=== PATIENT | female | born 2000 | race Caucasian/White ===

== ENCOUNTER 2021-05-30 14:45 | Inpatient (IN) ==
[2021-05-29] MEDS: Betamethasone Acet/SodPhos 30 MG/5 ML VIAL IM SCH (22:17)
[2021-05-29] MEDS: NIFEdipine Immed Rel 10 MG CAPSULE PO SCH (22:18)
[2021-05-29 22:22] LABS: Basophils % 0.3 %; Eosinophils % 0.3 %; Hematocrit 34.1 % (35.3-44.9); Hemoglobin 10.6 g/dL (11.5-15.4); Immature Granulocytes % 0.6 % (0-4); Lymphocytes # 2.3 K/mcL (0.6-4.6); Lymphocytes % 19.6 %; Mean Corpuscular HGB Conc 31.1 g/dL (31.6-35.5); Mean Corpuscular Hemoglobin 22.6 pg (28.0-33.3); Mean Corpuscular Volume 72.9 fL (83.0-100.0); Mean Platelet Volume 9.5 fL (9.4-12.4); Monocytes # 0.5 K/mcL (0.0-1.3); Monocytes % 4.4 %; Neutrophils # 8.6 K/mcL (1.6-8.9); Platelet Count 285 K/mcL (140-400); Red Blood Count 4.68 M/mcL (3.82-4.97); Red Cell Distribution Width 16.3 % (11.5-14.5); Segmented Neutrophils % 74.8 %; White Blood Count 11.5 K/mcL (4.3-11.1)
[2021-05-29 22:27] LABS: Creatinine,Urine 78 mg/dL; Protein/Creatinine Ratio,Urine 0.31 mg/mg (0.00-0.20)
[2021-05-29 22:32] LABS: Amphetamine Screen,Urine Negative ng/mL (Cutoff=1000); Barbiturate Screen,Urine Negative ng/mL (Cutoff=200); Benzodiazepines Screen,Urine Negative ng/mL (Cutoff=200); Cannabinoid Screen,Urine Positive ng/mL (Cutoff = 50); Cocaine Screen,Urine Negative ng/mL (Cutoff= 300); Opiate Screen,Urine Negative ng/mL (Cutoff=300); Phencyclidine Screen,Urine Negative ng/mL (Cutoff=25)
[2021-05-29 22:37] LABS: Alanine Aminotransferase 46 Units/L (7-52); Aspartate Amino Transferase 33 Units/L (13-39); BUN/Creatinine Ratio 8 (6-26); Blood Urea Nitrogen 4 mg/dL (6-20); Lactate Dehydrogenase 113 Units/L (140-271); Uric Acid 5.5 mg/dL (2.3-7.6); eGFR For African Americans > 60 (> 60); eGFR For Non-African Americans > 60 (> 60)
[2021-05-29 23:04] LABS: Varicella Zoster IgG Antibody Negative
[2021-05-29 23:05] LABS: Rubella IgG Antibody POSITIVE (POSITIVE)
[2021-05-29 23:55] LABS: Hepatitis B Surface Antigen Nonreactive (Nonreactive)
[2021-05-30 00:23] LABS: HIV-1&2 Antibody & p24 Ag Nonreactive (Nonreactive)
[2021-05-30] MEDS: Ringers Solution, Lactated 1,000 ML IVC SCH (02:58)
[2021-05-30] MEDS: NIFEdipine Immed Rel 10 MG CAPSULE PO SCH ×2 (12:26→18:28)
[2021-05-30] MEDS: Magnesium Sulf 20 gm/SW 500mL 20 GM/500 ML IV.SOLN IVC SCH ×2 (12:59→22:50)
[~2021-05-30 14:45] MED LIST: *HR* FentaNYL (PF) 100 MCG/2 ML VIAL EP ONE; Calcium Gluconate 1,000 MG/10 ML VIAL ONE; EPHEDrine 50 MG/ML VIAL IVP PRN; Epidural Premix (fent/bupiv) 110 ML EP SCH; Naloxone 0.4 MG/ML INJ IVP PRN; Penicillin G Potassium 5,000,000 UNIT in 0.9 % Sodium Chloride Mini Bag 100 ML IVPB ONE; Ringers Solution, Lactated 1,000 ML IVC ONE; Ringers Solution, Lactated 1,000 ML ONE; Ropivacaine/PF 0.2% 20 ML VIAL EP ONE; Vancomycin 2,000 MG/520 ML IV.SOLN IVPB ONE
[2021-05-30] MEDS ORDERED: Penicillin G Potassium 2,500,000 UNIT/105 ML MLS IVPB SCH (16:00)
[2021-05-30] MEDS: Betamethasone Acet/SodPhos 30 MG/5 ML VIAL IM SCH (22:47)
[2021-05-31] MEDS: NIFEdipine Immed Rel 10 MG CAPSULE PO SCH (00:32)
[2021-05-31] MEDS: Ringers Solution, Lactated 1,000 ML IVC SCH (00:47)
== END 2021-05-31 10:14 | disposition home or self-care (01) | DRG 566 ==
LOC: 1NENULAB
PROVIDERS: ADMIT Advanced Practice Midwife; ATTEND Advanced Practice Midwife